=== PATIENT | female | born 1960 ===

== ENCOUNTER 2017-06-29 13:34 | Observation (INO) | payer OTHER ==
[2017-06-29 13:49] VITALS: BMI 33.4
--- NOTE | 2017-06-29 13:51 | ED PDOC ---
Arrival/HPI - General Time Seen by Provider: 06/29/17 13:45 Historian: Patient - History of Present Illness Narrative History of Present Illness (Text): 06/29/17 13:50 A 57 year old female, whose past medical history includes diabetes, asthma, hypertension, osteoarthritis, fibromyalgia and hysterectomy, was sent into the emergency department by PMD for shortness of breath. Dr. Paul reports patients O2 saturation was 70%. On exam, patients O2 sat is 96% on room air. Patient reports worsening shortness of breath over the past 4-5 days. She notes wheezing and mild chest tightness. Patient reports using her inhaler, with no relief. Patient denies any fever, chills, nausea, vomiting, abdominal pain or any other complaints. PMD: Dr. Cordell Paul Time/Duration: Other (4-5 days) Symptom Course: Worsening Quality: Other Context: Home Past Medical History - Provider Review Nursing Documentation Reviewed: Yes - Cardiac Hx Hypertension: Yes - Pulmonary Hx Asthma: Yes - Neurological Hx Neurological Disorder: No - HEENT Hx HEENT Disorder: No - Renal Other/Comment: Donated left kidney, left with right kidney - Endocrine/Metabolic Hx Diabetes Mellitus Type 2: Yes Other/Comment: Thyroid - Hematological/Oncological Hx Blood Disorders: No - Integumentary Hx Dermatological Disorder: No - Musculoskeletal/Rheumatological Hx Musculoskeletal Disorders: No - Gastrointestinal Hx Gastrointestinal Disorders: No - Genitourinary/Gynecological Hx Genitourinary Disorders: Yes Other/Comment: Ovarian cyst. Menopausal - Psychiatric Hx Anxiety: Yes Hx Substance Use: No Other/Comment: Insomnia - Surgical History Hx Hysterectomy: Yes Other/Comment: donated left kidney - Anesthesia Hx Anesthesia: No Hx Anesthesia Reactions: No Hx Malignant Hyperthermia: No Family/Social History - Physician Review Nursing Documentation Reviewed: Yes Family/Social History: No Known Family HX Smoking Status: Never Smoked Hx Alcohol Use: No Hx Substance Use: No Allergies/Home Meds Allergies/Adverse Reactions: Allergies No Known Allergies Allergy (Verified 09/30/14 02:37) Home Medications: Home Meds Medication Instructions Recorded Confirmed ALPRAZolam [Xanax] 0.25 mg PO BID PRN 06/29/17 06/29/17 ALPRAZolam [Xanax] 1 tab PO BID 06/29/17 06/29/17 Albuterol HFA [Ventolin HFA 90 1 puff IH Q4H PRN 06/29/17 06/29/17 mcg/actuation (8 g)] Albuterol HFA [Ventolin HFA 90 2 puff IH [id number] 06/29/17 06/29/17 mcg/actuation (8 g)] Alogliptin Benzoate [Alogliptin] 1 tab PO DAILY 06/29/17 06/29/17 Alogliptin Benzoate [Alogliptin] 25 mg PO HS 06/29/17 06/29/17 Cyclobenzaprine [Flexeril] 1 tab PO DAILY PRN 06/29/17 06/29/17 Cyclobenzaprine [Flexeril] 5 mg PO DAILY PRN 06/29/17 06/29/17 Dulaglutide [Trulicity] 1.5 mg SC Q7D 06/29/17 06/29/17 Dulaglutide [Trulicity] 1.5 mg SC SUN 06/29/17 06/29/17 Empagliflozin [Jardiance] 1 tab PO DAILY 06/29/17 06/29/17 Empagliflozin [Jardiance] 25 mg PO DAILY 06/29/17 06/29/17 Levothyroxine [Synthroid] 1 tab PO DAILY 06/29/17 06/29/17 Levothyroxine [Synthroid] 25 mcg PO DAILY 06/29/17 06/29/17 Losartan Potassium [Cozaar] 100 mg PO DAILY 06/29/17 06/29/17 Losartan [Cozaar] 1 tab PO DAILY 06/29/17 06/29/17 traMADol [Ultram] 1 tab PO Q6H PRN 06/29/17 06/29/17 traMADol [Ultram] 50 mg PO TID PRN 06/29/17 06/29/17 Review of Systems - Physician Review All systems were reviewed & negative as marked: Yes - Review of Systems Constitutional: absent: Fevers, Night Sweats Respiratory: SOB, Wheezing Cardiovascular: Chest Pain Gastrointestinal: absent: Abdominal Pain, Nausea, Vomiting Physical Exam Vital Signs Reviewed: Yes Vital Signs Temp Pulse Resp BP Pulse Ox 06/29/17 14:40 19 06/29/17 13:48 98.7 F 100 H 19 170/104 H 98 Temperature: Afebrile Blood Pressure: Hypertensive Pulse: Tachycardic Respiratory Rate: Normal Appearance: Positive for: Well-Appearing, Non-Toxic, Comfortable Pain Distress: None Mental Status: Positive for: Alert and Oriented X 3 - Systems Exam Head: Present: Atraumatic, Normocephalic Pupils: Present: PERRL Extroacular Muscles: Present: EOMI Conjunctiva: Present: Normal Mouth: Present: Moist Mucous Membranes Pharnyx: No: ERYTHEMA, EXUDATE, TONSILS ENLARGED Neck: Present: Normal Range of Motion Respiratory/Chest: Present: Wheezes (expiratory wheezing), Decreased Breath Sounds, Tachypneic. No: Respiratory Distress, Accessory Muscle Use Cardiovascular: Present: Regular Rate and Rhythm, Normal S1, S2. No: Murmurs Abdomen: Present: Normal Bowel Sounds. No: Tenderness, Distention, Peritoneal Signs Back: Present: Normal Inspection Upper Extremity: Present: Normal Inspection. No: Cyanosis, Edema Lower Extremity: Present: Normal Inspection. No: Edema Neurological: Present: GCS=15, CN II-XII Intact, Speech Normal Skin: Present: Warm, Dry, Normal Color. No: Rashes Psychiatric: Present: Alert, Oriented x 3, Normal Insight, Normal Concentration Medical Decision Making ED Course and Treatment: 06/29/17 13:50 Impression: A 57 year old female with worsening shortness of breath. Patient notes mild chest tightness and wheezing. Differential Diagnosis included but are not limited to: Asthma exacerbation Plan: -- Chest xray -- EKG -- Labs -- Blood culture -- Duoneb and Solumedrol -- Reassess and disposition Progress Notes: EKG shows sinus tachycardia at 101 BPM with lateral T-wave inversions, with changes compared to prior on 09/30/14. Interpreted by me. Report Date : 06/29/2017 14:41:30 Procedure: Chest xray Dictator : Kory Tiwari MD IMPRESSION: No active disease. 06/29/17 15:36. Patient improving but still having symptoms. Lungs clear with mild exp wheeze. No tachynea. Case discussed with Dr. Paul who agrees that patient needs admission. Will consult Dr. Canada on his behalf. - Critical Care Critical Care Minutes: 30 minutes - Lab Interpretations Lab Results: 06/29/17 14:20 06/29/17 14:20 Lab Results 06/29/17 14:20: Sodium 142, Chloride 100, Potassium 3.8, Carbon Dioxide 27, Anion Gap 19, BUN 9, Creatinine 0.6, Est GFR ( Amer) > 60, Est GFR (Non- Af Amer) > 60, Random Glucose 168 H, Calcium 10.2, Lactate Dehydrogenase 533, Total Creatine Kinase 48, Troponin I < 0.01 06/29/17 14:20: pO2 42, VBG pH 7.36, VBG pCO2 51.0, VBG HCO3 28.8 H, VBG Total CO2 30.4 H, VBG O2 Sat (Calc) 82.4 H, VBG Base Excess 2.4 H, VBG Potassium 3.9, Sodium 138.0, Chloride 102.0, Glucose 181 H, Lactate 2.6 H, FiO2 21.0, Venous Blood Potassium 3.9 06/29/17 14:20: WBC 5.9, RBC 4.90, Hgb 15.0, Hct 44.4, MCV 90.6, MCH 30.6, MCHC 33.8, RDW 12.5, Plt Count 364, MPV 9.9, Gran % 55.5, Lymph % (Auto) 28.9, Divide % (Auto) 6.5 H, Eos % (Auto) 7.7 H, Baso % (Auto) 1.4, Gran # 3.27, Lymph # 1.7 , Divide # 0.4, Eos # 0.5, Baso # 0.08 I have reviewed the lab results: Yes - RAD Interpretation Radiology Orders: 06/29/17 13:50 CHEST PORTABLE [RAD] Stat - Medication Orders Current Medication Orders: Acetaminophen (Tylenol 325mg Tab) 650 mg PO Q4H PRN PRN Reason: Fever >100.5 F Albuterol/Ipratropium (Duoneb 3 Mg/0.5 Mg (3 Ml) Ud) 3 ml IH Q3H PRN PRN Reason: Shortness of Breath Discontinued Medications Albuterol/Ipratropium (Duoneb 3 Mg/0.5 Mg (3 Ml) Ud) 3 ml IH Q15M ANTONY Stop: 06/29/17 14:31 Last Admin: 06/29/17 15:16 Dose: 3 ml Methylprednisolone (Solu-Medrol) 125 mg IVP STAT STA Stop: 06/29/17 13:51 Last Admin: 06/29/17 14:31 Dose: 125 mg - Scribe Statement The provider has reviewed the documentation as recorded by the Juan Antonio Turner Provider Scribe Attestation: All medical record entries made by the Farzanehibe were at my direction and personally dictated by me. I have reviewed the chart and agree that the record accurately reflects my personal performance of the history, physical exam, medical decision making, and the department course for this patient. I have also personally directed, reviewed, and agree with the discharge instructions and disposition. Disposition/Present on Arrival - Present on Arrival Any Indicators Present on Arrival: Yes History of DVT/PE: No History of Uncontrolled Diabetes: Yes Urinary Catheter: No History Surgical Site Infection Following: None - Disposition Have Diagnosis and Disposition been Completed?: Yes Diagnosis: Asthma Disposition: HOSPITALIZED Disposition Time: 15:36 Patient Plan: Observation Condition: FAIR
[2017-06-29] MEDS: Albuterol-Ipratrop 3 mg / 0.5 (3 ml) UD IH SCH ×3 (14:31→15:16)
--- NOTE | 2017-06-29 14:43 | RAD ---
HISTORY: sob r/o pna COMPARISON: No prior. FINDINGS: LUNGS: No active pulmonary disease. PLEURA: No significant pleural effusion identified, no pneumothorax apparent. CARDIOVASCULAR: Normal. OSSEOUS STRUCTURES: No significant abnormalities. VISUALIZED UPPER ABDOMEN: Normal. OTHER FINDINGS: None. IMPRESSION: No active disease.
[2017-06-29 14:51] LABS: BASO # 0.08 K/mm3 (0.0-2.0); BASO % 1.4 % (0.0-3.0); EOS # 0.5 (0.0-0.7); EOS % 7.7 % (1.5-5.0); GRAN # 3.27 (1.4-6.5); GRAN % 55.5 % (50.0-68.0); HEMATOCRIT 44.4 % (36.0-48.0); LYMPH # 1.7 (1.2-3.4); LYMPH % 28.9 % (22.0-35.0); MEAN CELL VOLUME 90.6 fl (80.0-105.0); MEAN CORPUSCULAR HEMOGLOBIN 30.6 pg (25.0-35.0); MEAN CORPUSCULAR HGB CONC 33.8 g/dl (31.0-37.0); MEAN PLATELET VOLUME 9.9 fl (7.0-11.0); MONO # 0.4 (0.1-0.6); MONO % 6.5 % (1.0-6.0); RED CELL DISTRIBUTION WIDTH 12.5 % (11.5-14.5); VENOUS BLOOD GAS BASE EXCESS 2.4 mmol/L (0.0-2.0); VENOUS BLOOD PH 7.36 (7.32-7.43); WHITE BLOOD COUNT 5.9 10^3/ul (4.5-11.0)
[2017-06-29 15:02] LABS: BLOOD UREA NITROGEN 9 mg/dL (7-21); CALCIUM 10.2 mg/dL (8.4-10.5); CARBON DIOXIDE 27 mmol/L (21-33); CHLORIDE 100 mmol/L (98-107); GFR AFRICAN-AMERICAN > 60; GLUCOSE,RANDOM 168 mg/dL (70-110); POTASSIUM 3.8 mmol/L (3.6-5.0); SODIUM 142 mmol/L (132-148)
[2017-06-29 15:12] LABS: TROPONIN I < 0.01 ng/mL
[2017-06-29] MEDS: Albuterol-Ipratrop 3 mg / 0.5 (3 ml) UD IH PRN ×2 (17:51→19:30)
[2017-06-29 19:04] VITALS: BP 167/98
[2017-06-29] MEDS: Arformoterol 15 mcg/2 ml Inh Sol IH SCH (20:23)
[2017-06-29 21:58] LABS: VENOUS BLOOD GAS BASE EXCESS -5.2 mmol/L (0.0-2.0); VENOUS BLOOD PH 7.32 (7.32-7.43)
[2017-06-29] MEDS ORDERED: Insulin Lispro 1 UNITS/0.01 ML SC STA (22:00)
--- NOTE | 2017-06-29 22:00 | CP.PCM.PN ---
Subjective - Date & Time of Evaluation Date of Evaluation: 06/29/17 Time of Evaluation: 22:00 - Subjective Subjective: Patient was seen because her FSBS was 435 mg%. Has no complaints. Patient had received 3 units regular insulin earlier. Also having solumedrol. Patient also requested a sleeping pill. Takes lunesta at home. States that ambien does not help her. This 57 year old woman was admitted with shortness of breath and wheezing. Has PMH of asthma, HLD , HTN, DM II, OA. Objective - Vital Signs/Intake and Output Vital Signs (last 24 hours): Temp Pulse Resp BP Pulse Ox 98.7 F 115 H 20 167/98 H 95 06/29/17 13:48 06/29/17 18:46 06/29/17 18:46 06/29/17 18:46 06/29/17 18:46 - Medications Medications: Current Medications Acetaminophen (Tylenol 325mg Tab) 650 mg PO Q4H PRN PRN Reason: Fever >100.5 F Alprazolam (Xanax) 0.25 mg PO BID PRN; Protocol PRN Reason: Anxiety Stop: 07/07/17 10:01 Arformoterol Tartrate (Brovana) 15 mcg IH [id number] ANTONY Last Admin: 06/29/17 20:23 Dose: Not Given Budesonide (Pulmicort Respules) 0.5 mg IH Q12 ANTONY Cyclobenzaprine HCl (Flexeril) 5 mg PO DAILY PRN PRN Reason: Pain, moderate (4-7) Doxycycline Hyclate (Doryx) 100 mg PO Q12 ANTONY PRN Reason: Protocol Insulin Human Regular (Humulin R Low) 0 units SC ACHS [facility] PRN Reason: Protocol Levothyroxine Sodium (Synthroid) 25 mcg PO DAILY ANTONY Losartan Potassium (Cozaar) 100 mg PO DAILY ANTONY Methylprednisolone (Solu-Medrol) 40 mg IVP Q8 ANTONY Tramadol HCl (Ultram) 50 mg PO Q6H PRN PRN Reason: Pain, moderate (4-7) - Constitutional Appears: Well, No Acute Distress - Head Exam Head Exam: ATRAUMATIC, NORMAL INSPECTION, NORMOCEPHALIC - Eye Exam Eye Exam: Normal appearance - ENT Exam ENT Exam: Normal External Ear Exam - Neck Exam Neck Exam: Normal Inspection - Respiratory Exam Respiratory Exam: NORMAL BREATHING PATTERN - Cardiovascular Exam Cardiovascular Exam: absent: JVD - GI/Abdominal Exam GI & Abdominal Exam: absent: Distended - Rectal Exam Rectal Exam: Deferred - Exam Additional comments: Deferred. - Extremities Exam Extremities Exam: Normal Inspection - Back Exam Back Exam: NORMAL INSPECTION - Neurological Exam Neurological Exam: Alert, Oriented x3 - Psychiatric Exam Psychiatric exam: Normal Affect, Normal Mood - Skin Skin Exam: Normal Color Assessment and Plan - Assessment and Plan (Free Text) Assessment: Hyperglycemia. DM II. HTN. Adjustment insomnia. Osteoarthritis. HLD. Asthma. Plan: Regular insulin 10 Units SC Stat. Benadryl 50 mg PO STAT. Continue present management.
[2017-06-29] MEDS: MethylPREDNISolone 40 mg Vial IVP SCH (22:03)
[2017-06-29] MEDS: Insulin Reg-LOW-Coverage SC SCH (22:23)
[2017-06-29] MEDS: Budesonide 0.5 mg/2 ml Inhal Susp UD IH SCH ×2 (22:25→22:46)
[2017-06-29] MEDS ORDERED: Pneumococcal 23-Valent Vaccine IM ONE (22:49)
[2017-06-30 02:07] LABS: VENOUS BLOOD GAS BASE EXCESS -1.1 mmol/L (0.0-2.0); VENOUS BLOOD PH 7.37 (7.32-7.43)
[2017-06-30] MEDS: MethylPREDNISolone 40 mg Vial IVP SCH (05:02)
[2017-06-30] MEDS: Arformoterol 15 mcg/2 ml Inh Sol IH SCH (07:40)
[2017-06-30] MEDS: Budesonide 0.5 mg/2 ml Inhal Susp UD IH SCH (08:03)
[2017-06-30 08:22] VITALS: RESP 18; TEMP 98; O2SAT 98
[2017-06-30] MEDS: Insulin Reg-LOW-Coverage SC SCH (08:25)
--- NOTE | 2017-06-30 08:55 | CARD ---
APPROVED REPORT EKG Measurement Heart [id number] <Conclusion> Sinus tachycardia Possible Left atrial enlargement Nonspecific T wave abnormality
[2017-06-30] MEDS ORDERED: Levothyroxine 25 MCG TAB PO SCH (10:00)
[2017-06-30 12:24] VITALS: PULSE 101
--- NOTE | 2017-06-30 13:38 | CP.PCM.HP ---
History of Present Illness - History of Present Illness History of Present Illness: 57 yo female admitted thru ED yesterday with wheezing and SOB. Started on IV steroids, Abx, nebulizer rx with improvement. Medical stable at present for discharge. No fever, denies sob or cp, cough decreased, no hemoptysis Present on Admission - Present on Admission Any Indicators Present on Admission: No Review of Systems - Constitutional Constitutional: Fatigue - Respiratory Respiratory: Cough, Dyspnea, Wheezing Past Patient History - Infectious Disease Hx of Infectious Diseases: None - Past Social History Smoking Status: Never Smoked - CARDIAC Hx Hypercholesterolemia: Yes Hx Hypertension: Yes - PULMONARY Hx Asthma: Yes - NEUROLOGICAL Hx Neurological Disorder: No - HEENT Hx HEENT Problems: Yes (eyeglasses) - RENAL Other/Comment: Donated left kidney - ENDOCRINE/METABOLIC Hx Diabetes Mellitus Type 2: Yes Hx Hypothyroidism: Yes - HEMATOLOGICAL/ONCOLOGICAL Hx Blood Disorders: No - INTEGUMENTARY Hx Dermatological Problems: No - MUSCULOSKELETAL/RHEUMATOLOGICAL Hx Musculoskeletal Disorders: Yes Hx Arthritis: Yes Hx Falls: Yes (past) Hx Osteoarthritis: Yes Hx Unsteady Gait: Yes Other/Comment: fell down stairs crack in right kneecap about 2 yrs ago, torn meniscus L knee slipped and fell about 4 yrs ago, back pain fx lower spine can' t stand more than 10 minutes has to sit down hurt her back when she slipped and fell and injured L knee 4 yrs ago - GASTROINTESTINAL Other/Comment: 50 lb weight loss in the past 4 months not on purpose - GENITOURINARY/GYNECOLOGICAL Hx Genitourinary Disorders: Yes Other/Comment: Ovarian cyst. Menopausal - PSYCHIATRIC Hx Anxiety: Yes Other/Comment: Insomnia - SURGICAL HISTORY Hx Hysterectomy: Yes (partial) Other/Comment: donated left kidney - ANESTHESIA Hx Anesthesia: No Hx Anesthesia Reactions: No Hx Malignant Hyperthermia: No Meds Allergies/Adverse Reactions: Allergies Allergy/AdvReac Type Severity Reaction Status Date / Time No Known Allergies Allergy Verified 09/30/14 02:37 Physical Exam - Constitutional Appears: No Acute Distress - Head Exam Head Exam: ATRAUMATIC, NORMOCEPHALIC - Eye Exam Eye Exam: EOMI, Normal appearance Pupil Exam: PERRL - ENT Exam ENT Exam: Mucous Membranes Moist, Normal Exam - Neck Exam Neck exam: Positive for: Normal Inspection - Respiratory Exam Respiratory Exam: Clear to Auscultation Bilateral, NORMAL BREATHING PATTERN - Cardiovascular Exam Cardiovascular Exam: REGULAR RHYTHM - GI/Abdominal Exam GI & Abdominal Exam: Normal Bowel Sounds, Soft - Back Exam Back exam: NORMAL INSPECTION - Neurological Exam Neurological exam: Alert, Oriented x3 - Skin Skin Exam: Dry, Warm Results - Vital Signs Recent Vital Signs: Last Vital Signs Temp 98 F 06/30/17 08:22 Pulse 101 H 06/30/17 10:00 Resp 18 06/30/17 08:22 BP 167/98 H 06/29/17 22:30 Pulse Ox 98 06/30/17 08:22 - Labs Result Diagrams: 06/29/17 14:20 06/29/17 14:20 Labs: Laboratory Results - last 24 hr 06/29/17 06/29/17 06/29/17 21:39 21:45 23:32 pO2 39 VBG pH 7.32 VBG pCO2 40.0 VBG HCO3 20.6 L VBG Total CO2 21.8 L VBG O2 Sat (Calc) 78.0 H VBG Base Excess -5.2 L VBG Potassium 4.5 Sodium 137.0 Chloride 94.0 L Glucose 528 H* D Lactate 9.1 H* FiO2 21.0 POC Glucose (mg/dL) 435 H* 352 H Venous Blood Potassium 4.5 06/30/17 06/30/17 06/30/17 01:35 07:21 11:26 pO2 24 L VBG pH 7.37 VBG pCO2 42.0 VBG HCO3 24.3 VBG Total CO2 25.6 VBG O2 Sat (Calc) 49.9 VBG Base Excess -1.1 L VBG Potassium 4.7 Sodium 136.0 Chloride 97.0 L Glucose 376 H Lactate 6.8 H* FiO2 21.0 POC Glucose (mg/dL) 197 H 349 H Venous Blood Potassium 4.7 Assessment & Plan (1) Asthma Status: Acute (2) Diabetes mellitus Status: Acute - Date & Time Date: 06/30/17 Time: 11:00
--- NOTE | 2017-07-24 06:46 | DS ---
HOSPITAL COURSE: The patient is a 57-year-old female admitted to the Emergency Department on 06/29/2017 with wheezing and shortness of breath. She was started on IV steroids and antibiotics with Rocephin and Zithromax with improvement overnight. She was discharged to home in stable condition on 06/30/2017. History of present illness, physical findings, and impressions are as per history and physical dictated 06/30/2017. IMPRESSION: 1. Exacerbation of asthma. 2. Type 2 diabetes mellitus. 3. Hypertension. 4. Anxiety disorder. PLAN: The patient was discharged home on the following medications; losartan 100 mg daily, Trulicity 1.5 mg subcutaneously every weekly, alogliptin 25 mg at bedtime, and Xanax 1 mg twice daily. She was given Z-Bernard and Medrol Dosepak. She was advised to follow up in the office within the next 1 to 2 weeks. Activity is ad libitum. The patient is on a consistent carbohydrate diet. JCARLOS Ibarra MD
== END 2017-06-30 12:53 | disposition home or self-care (01) ==
LOC: ED 13:34 → ERH 15:36 → 3RSO 19:34
PROVIDERS: ADMIT Internal Medicine; ATTEND Internal Medicine
DX: J45.909 Unspecified asthma, uncomplicated (principal); E11.9 Type 2 diabetes mellitus without complications; I10 Essential (primary) hypertension; E03.9 Hypothyroidism, unspecified; Z79.84 Long term (current) use of oral hypoglycemic drugs
CPT/HCPCS: 71010; 80048; 82550; 82803; 82948; 83615; 84484; 85025; 87040; 93005; 94150; 96374; 96376; 99285; G0378; J2920; J2930